=== PATIENT | female | born 2000 | race Two or more races ===

== ENCOUNTER 2023-12-05 15:40 | Emergency (ER) | payer MEDICAID, OTHER ==
[~2023-12-05] VITALS: Ht 160 cm; Wt 109.9 kg
[2023-12-05 15:45] VITALS: TEMP 97.8
[2023-12-05] MEDS: SODIUM CHLORIDE 0.9% 1,000 ML IV ONE (16:20)
[2023-12-05] MEDS: MECLIZINE HCL 25 MG TAB PO ONE (16:21)
[2023-12-05 16:33] LABS: Basophils # (auto) 0.1 10 ^3/uL (0-0.2); Basophils % (auto) 0.6 % (0.0-2.0); Eosinophils # (auto) 0.1 10 ^3/uL (0-0.8); Eosinophils % (auto) 1.7 % (0.0-7.0); Hematocrit 40.1 % (36.0-46.0); Hemoglobin 13.4 g/dL (12.2-16.2); Lymphocytes # (auto) 2.9 10 ^3/uL (0.4-5.4); Lymphocytes % (auto) 35.2 % (10.0-50.0); Mean Corpuscular Hemoglobin 28.7 pg (28.0-32.0); Mean Corpuscular Hgb Conc. 33.3 g/dL (32.0-36.0); Mean Corpuscular Volume 86.1 fL (80.0-100.0); Monocytes # (auto) 0.5 10 ^3/uL (0-1.3); Monocytes % (auto) 5.6 % (0.0-12.0); Neutrophils # (auto) 4.7 10 ^3/uL (1.6-8.6); Neutrophils % (auto) 56.9 % (37.0-80.0); Nucleated Red Blood Cells % 0.1 %; Red Blood Cells 4.66 10^6/uL (4.0-5.20); Red Cell Distribution Width 14.8 % (11.8-14.3); White Blood Cell 8.3 10^3/uL (4.4-10.8)
[2023-12-05 16:44] LABS: Chloride 111 mmol/L (98-107); Potassium 4.2 mmol/L (3.5-5.1); Sodium 142 mmol/L (136-145)
[2023-12-05 16:45] LABS: Anion Gap 9 (5-15); Calcium 9.2 mg/dL (8.7-10.4); Carbon Dioxide 22 mmol/L (20-30)
[2023-12-05 16:50] LABS: BUN/Creatinine Ratio 14.7 (10.0-20.0); Blood Urea Nitrogen 10 mg/dL (9-23); Glucose 94 mg/dL (74-106)
[2023-12-05] MEDS ORDERED: MECL12.586 PO (17:23)
[2023-12-05 17:34] VITALS: PULSE 84; RESP 16; O2SAT 95
[2023-12-05 17:37] VITALS: BP 111/72; PULSE 70; RESP 16; O2SAT 95
== END 2023-12-05 17:45 | disposition home or self-care (01) ==
LOC: ER 15:40 → EDBD 15:40 → ER 17:45
DX: R42 Dizziness and giddiness (principal); R10.2 Pelvic and perineal pain
CPT/HCPCS: 36415; 80048; 84702; 85025; 93005; 96360; 99284; J7030; J8597